=== PATIENT | male | born 1950 | race Caucasian/White ===

== ENCOUNTER 2016-08-15 14:07 | Observation (INO) | payer OTHER ==
[2016-08-15] VITALS (7 sets, daily range): BP systolic 126–147; BP diastolic 63–74; PULSE 44–74; RESP 16–18; TEMP 97.8–98.1; O2SAT 97–100
[~2016-08-15] VITALS: Ht 172.7 cm; Wt 82.0 kg
[2016-08-15] MEDS ORDERED: SODIUM CHLORIDE 0.9% FLUSH 10 ML FLUSH IVF PRN (14:15)
[2016-08-15] MEDS ORDERED: HYDR25TA5 PO (14:15)
--- NOTE | 2016-08-15 14:17 | PD ---
HPI Chief Complaint: chest pain Time Seen by Provider: 14:17 Travel History International Travel<30 days: No Contact w/Intl Traveler<30days: No Traveled to known affect area: No History of Present Illness HPI 66-year-old male with history of hypertension presents to the emergency department from the [place] for evaluation of left-sided chest pain. Patient states it has been intermittently occurring over the last couple of months. It has been on the left side, sharp, stabbing, intermittent but does not radiate anywhere. Patient reports associated shortness of breath with it at times. No nausea or vomiting. No hemoptysis. No cough or chest congestion. Patient has no history of [place] or PE. Reports stress test at the [place] within the last 2 months he states "everything was fine." Patient denies any episodes of diaphoresis or lightheadedness associated with this. He cannot recall any alleviating or exacerbating factors. No other symptoms to report. PFSH Past Medical History Hypertension: Yes Social History Alcohol Use: No Tobacco Use: No Substance Use: No Allergies-Medications (Allergen,Severity, Reaction): Coded Allergies: No Known Allergies (Unverified , 08/15/16) Reported Meds & Prescriptions Reported Meds & Active Scripts Active Reported Hydrochlorothiazide 25 Mg Tab 25 Mg PO DAILY Review of Systems Except as stated in HPI: all other systems reviewed are Neg Physical Exam Narrative GENERAL: Well-nourished male patient, ambulatory and in no acute distress SKIN: Warm and dry. HEAD: Atraumatic. Normocephalic. EYES: Pupils equal and round. No scleral icterus. No injection or drainage. ENT: No nasal bleeding or discharge. Mucous membranes pink and moist. NECK: Trachea midline. No JVD. CARDIOVASCULAR: Bradycardic rate and rhythm. No murmur appreciated. RESPIRATORY: No accessory muscle use. Clear to auscultation. Breath sounds equal bilaterally. GASTROINTESTINAL: Abdomen soft, non-tender, nondistended. Hepatic and splenic margins not palpable. MUSCULOSKELETAL: No obvious deformities. No clubbing. No cyanosis. No edema. NEUROLOGICAL: Awake and alert. No obvious cranial nerve deficits. Motor grossly within normal limits. Normal speech. PSYCHIATRIC: Appropriate mood and affect; insight and judgment normal. Data Data Last Documented VS Vital Signs Date Time Temp Pulse Resp B/P Pulse Ox O2 Delivery O2 Flow Rate FiO2 08/15/16 16:25 46 16 147/73 100 Room Air 08/15/16 14:16 98.1 Orders Electrocardiogram (08/15/16 ) Ckmb (Isoenzyme) Profile (08/15/16 14:15) Complete Blood Count With Diff (08/15/16 14:15) Comprehensive Metabolic Panel (08/15/16 14:15) Magnesium (Mg) (08/15/16 14:15) Prothrombin Time / Inr (Pt) (08/15/16 14:15) Act Partial Throm Time (Ptt) (08/15/16 14:15) Troponin I (08/15/16 14:15) Lipase (08/15/16 14:15) Chest, Single Ap (08/15/16 14:15) Ecg Monitoring (08/15/16 14:15) Bilateral Bp Monitoring (08/15/16 14:15) Iv Access Insert/Monitor (08/15/16 14:15) Oximetry (08/15/16 14:15) Oxygen Administration (08/15/16 14:15) Sodium Chloride 0.9% Flush (Ns Flush) (08/15/16 14:15) Ct Pulmonary Angiogram (08/15/16 14:15) CKMB (08/15/16 14:25) CKMB% (08/15/16 14:25) Iohexol 350 Inj (Omnipaque 350 Inj) (08/15/16 16:20) Admit Order (Ed Use Only) (08/15/16 16:39) Aspirin (Aspirin) (08/15/16 16:45) Labs Laboratory Tests Test 08/15/16 14:25 White Blood Count 6.4 TH/MM3 Red Blood Count 5.15 MIL/MM3 Hemoglobin 16.1 GM/DL Hematocrit 46.2 % Mean Corpuscular Volume 89.6 FL Mean Corpuscular Hemoglobin 31.2 PG Mean Corpuscular Hemoglobin 34.8 % Concent Red Cell Distribution Width 13.4 % Platelet Count 133 TH/MM3 Mean Platelet Volume 10.0 FL Neutrophils (%) (Auto) 57.1 % Lymphocytes (%) (Auto) 25.0 % Monocytes (%) (Auto) 13.4 % Eosinophils (%) (Auto) 3.3 % Basophils (%) (Auto) 1.2 % Neutrophils # (Auto) 3.7 TH/MM3 Lymphocytes # (Auto) 1.6 TH/MM3 Monocytes # (Auto) 0.9 TH/MM3 Eosinophils # (Auto) 0.2 TH/MM3 Basophils # (Auto) 0.1 TH/MM3 CBC Comment DIFF FINAL Differential Comment Prothrombin Time 11.4 SEC Prothromb Time International 1.0 RATIO Ratio Activated Partial 26.8 SEC Thromboplast Time Sodium Level 139 MEQ/L Potassium Level 3.7 MEQ/L Chloride Level 103 MEQ/L Carbon Dioxide Level 33.1 MEQ/L Anion Gap 3 MEQ/L Blood Urea Nitrogen 12 MG/DL Creatinine 0.99 MG/DL Estimat Glomerular Filtration 76 ML/MIN Rate Random Glucose 93 MG/DL Calcium Level 8.9 MG/DL Magnesium Level 2.1 MG/DL Total Bilirubin 0.7 MG/DL Aspartate Amino Transf 24 U/L (AST/SGOT) Alanine Aminotransferase 32 U/L (ALT/SGPT) Alkaline Phosphatase 59 U/L Total Creatine Kinase 226 U/L Creatine Kinase MB 2.2 NG/ML Troponin I 0.02 NG/ML Total Protein 7.3 GM/DL Albumin 3.7 GM/DL Lipase 128 U/L [facility] Medical Decision Making Medical Screen Exam Complete: Yes Emergency Medical Condition: Yes Medical Record Reviewed: Yes Differential Diagnosis ACS versus chest wall pain versus pleuritic pain versus musculoskeletal pain Narrative Course 66-year-old male presents to the emergency department for evaluation of left- sided chest pain. Patient appears without distress. Exam is benign. Patient is noted to have a bradycardic rhythm here in the emergency department. CBC and CMP are without acute concern. Troponin is 0.02. Chest x-ray is normal. CT pulmonary angiogram is negative for PE. I discussed the patient my attending physician Dr. Dong who agrees the patient benefit from stenting admission for further evaluation of this chest pain. Plan is discussed with patient. He is in agreement with the splenic care. Diagnosis Primary Impression: Chest pain Qualified Code: R07.9 - Chest pain, unspecified type Admitting Information Admitting Physician Requests: Observation Condition: Stable KraigGenny GOLDBERG Aug 15, 2016 14:17
--- NOTE | 2016-08-15 14:43 | RADRPT ---
EXAM DATE/TIME: 08/15/2016 14:27 [facility] COMPARISON: No previous studies available for comparison. INDICATIONS : Left sided chest pain with shortness of breath for 2 days. MEDICAL HISTORY : None. SURGICAL HISTORY : None. ENCOUNTER: Initial ACUITY: 2 days PAIN SCORE: 5/10 LOCATION: Left chest FINDINGS: 2 frontal views of the chest demonstrate the lungs to be symmetrically aerated without evidence of ma ss, infiltrate or effusion. The cardiomediastinal contours are unremarkable. Osseous structures are intact. CONCLUSION: Normal examination. Colin Chang Jr., MD on August 15, 2016 at 14:41 Board Certified Radiologist. This report was verified electronically.
[2016-08-15 14:51] LABS: AUTOMATED NEUTROPHIL # 3.7 TH/MM3 (1.8-7.7); BASOPHIL # 0.1 TH/MM3 (0-0.2); BASOPHIL % 1.2 % (0.0-2.0); EOSINOPHIL # 0.2 TH/MM3 (0-0.4); EOSINOPHIL % 3.3 % (0.0-4.0); HEMATOCRIT 46.2 % (39.0-51.0); HEMO FLAGS DIFF FINAL; LYMPHOCYTE # 1.6 TH/MM3 (1.0-4.8); MEAN CELL VOLUME 89.6 FL (80.0-100.0); MEAN CORPUSCULAR HEMOGLOBIN 31.2 PG (27.0-34.0); MEAN CORPUSCULAR HGB CONC 34.8 % (32.0-36.0); MONO % 13.4 % (0.0-8.0); NEUT % 57.1 % (16.0-70.0); PLATELET COUNT 133 TH/MM3 (150-450); RED BLOOD COUNT 5.15 MIL/MM3 (4.50-5.90); RED CELL DISTRIBUTION WIDTH 13.4 % (11.6-17.2); WHITE BLOOD COUNT 6.4 TH/MM3 (4.0-11.0)
[2016-08-15 14:59] LABS: APTT (PATIENT) 26.8 SEC (24.3-30.1); PROTHROMBIN TIME - PATIENT 11.4 SEC (9.8-11.6)
[2016-08-15 15:15] LABS: ALKALINE PHOSPHATASE 59 U/L (45-117); ALT (GPT) 32 U/L (12-78); ANION GAP 3 MEQ/L (5-15); AST (GOT) 24 U/L (15-37); BICARBONATE 33.1 MEQ/L (21.0-32.0); BLOOD UREA NITROGEN 12 MG/DL (7-18); CHLORIDE 103 MEQ/L (98-107); CREATINE KINASE 226 U/L (39-308); GLOMERULAR FILTRATION RATE 76 ML/MIN (>89); MAGNESIUM 2.1 MG/DL (1.5-2.5); SODIUM (NA) 139 MEQ/L (136-145); TOTAL BILIRUBIN ADULT 0.7 MG/DL (0.2-1.0)
[2016-08-15 15:16] LABS: POTASSIUM 3.7 MEQ/L (3.5-5.1)
[2016-08-15 15:30] LABS: CKMB 2.2 NG/ML (0.5-3.6)
[2016-08-15] MEDS ORDERED: IOHEXOL 350 MG/ML 10 ML VIAL (for RAD DIAG) IV ONE (16:20)
--- NOTE | 2016-08-15 16:29 | RADRPT ---
EXAM DATE/TIME: 08/15/2016 16:08 [facility] COMPARISON: No previous studies available for comparison. INDICATIONS : Chest pain and shortness of breath; evaluate for pulmonary embolism. IV CONTRAST: 55 cc Omnipaque 350 (iohexol) IV RADIATION DOSE: 13.15 CTDIvol (mGy) MEDICAL HISTORY : Cardiovascular disease. Hypertension. SURGICAL HISTORY : None. ENCOUNTER: Initial ACUITY: 2 days PAIN SCALE: 6/10 LOCATION: Chest TECHNIQUE: Volumetric scanning of the chest was performed using a pulmonary embolism protocol MIP images were re constructed. Using automated exposure control and adjustment of the mA and/or kV according to patien t size, radiation dose was kept as low as reasonably achievable to obtain optimal diagnostic quality images. FINDINGS: The lungs are clear. There is no axillary adenopathy. There is no radiographically significant mediastinal adenopathy. There is no central pulmonary emboli. Portion of the liver and spleen identified are free of focal defects. CONCLUSION: Negative for central pulmonary emboli. Khadar Norton MD FACR on August 15, 2016 at 16:23 Board Certified Radiologist. This report was verified electronically.
[2016-08-15] MEDS ORDERED: ASPIRIN 325 MG TAB PO ONE (16:45)
[2016-08-15] MEDS ORDERED: ONDANSETRON HCL 4 MG/2 ML VIAL IV PRN (17:30)
[2016-08-15] MEDS ORDERED: ACETAMINOPHEN 500 MG CPLT PO PRN (17:30)
[2016-08-15] MEDS ORDERED: NITROGLYCERIN 0.4 MG SL 25 TABS/BTL SL PRN (17:30)
[2016-08-15 20:01] LABS: CREATINE KINASE 194 U/L (39-308)
[2016-08-15 20:13] LABS: CKMB 2.5 NG/ML (0.5-3.6)
[2016-08-15 21:13] LABS: CREATINE KINASE 184 U/L (39-308)
[2016-08-16] VITALS: BP 128/74; PULSE 68; RESP 18; TEMP 98.2; O2SAT 98
[2016-08-16 01:21] VITALS: PULSE 41
[2016-08-16 05:06] VITALS: BP 126/58; PULSE 87; RESP 18; TEMP 97.8; O2SAT 97
[2016-08-16 08:33] VITALS: PULSE 82
[2016-08-16] MEDS ORDERED: PANTOPRAZOLE SOD 40 MG DELAYED RELEASE TAB PO SCH (09:00)
[2016-08-16] MEDS ORDERED: HYDROCHLOROTHIAZIDE 25 MG TAB PO SCH (09:00)
[2016-08-16] MEDS ORDERED: SODIUM CHLORIDE 0.9% FLUSH 10 ML FLUSH IV FLUSH SCH (09:00)
[2016-08-16] MEDS ORDERED: ASPIRIN 325 MG TAB PO SCH (09:00)
--- NOTE | 2016-08-16 11:41 | RADRPT ---
EXAM DATE/TIME: 08/16/2016 08:46 [facility] COMPARISON: No previous studies available for comparison. INDICATIONS : Left chest pain with dyspnea for 2 months. Angina DOSE: 26.7 mCi Tc99m Myoview at stress 8.8 mCi Tc99m Myoview at rest REST HEART RATE: 64 BPM TARGET HEART RATE: 131 BPM MAX HEART RATE: 133 BPM REST BLOOD PRESSURE: 122/66 mmHg MAX BLOOD PRESSURE: 33122 mmHg EJECTION FRACTION: 62% MEDICAL HISTORY : Hypertension. SURGICAL HISTORY : None. ENCOUNTER: Initial ACUITY: 2 months PAIN SCALE: 7/10 LOCATION: Left chest TECHNIQUE: The patient underwent upright treadmill exercise in the chest pain center. Continuous ECG tracing wa s monitored during stress. Gated SPECT imaging was performed after stress, and conventional SPECT im aging was performed at rest. The examination was performed on a SPECT/CT scanner, both attenuation-c orrected and non-corrected datasets were reviewed. FINDINGS: DISTRIBUTION: The maximum perfused segment at stress is in the lateral wall. PERFUSION STUDY: The pattern of perfusion at stress is within normal limits. GATED STUDY: There is intact wall motion and thickening without hypokinetic or dyskinetic segments. CONCLUSION: 1. Unremarkable myocardial perfusion scan. RISK CATEGORY: Low (<1% Annual Mortality Rate) Kiran Zepeda MD on August 16, 2016 at 11:38 Board Certified Radiologist. This report was verified electronically.
[2016-08-16] MEDS ORDERED: PANT40TA3 PO (12:08)
--- NOTE | 2016-08-16 12:09 | HHI.DCPOC ---
Discharge Care Plan Diagnosis: (1) Atypical chest pain (2) Musculoskeletal chest pain (3) GERD (gastroesophageal reflux disease) Goals to Promote Your Health * To prevent worsening of your condition and complications * To maintain your health at the optimal level Directions to Meet Your Goals Take your medications as prescribed Follow your dietary instruction Follow activity as directed Keep your appointments as scheduled Take your immunizations and boosters as scheduled If your symptoms worsen call your PCP, if no PCP go to Urgent Care Center or Emergency Room Smoking is Dangerous to Your Health. Avoid second hand smoke Call the 24-hour hour crisis hotline for domestic abuse at [place] Cruz Aug 16, 2016 12:08
[2016-08-16 12:29] VITALS: BP 141/78; PULSE 55; RESP 19; TEMP 97.6; O2SAT 94
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
--- NOTE | 2016-08-16 17:36 | TR ---
Date Performed: 08/16/2016 Time Performed: 09:40:13 DOCTOR: Awa Weeks DRUG LIST: CLINICAL HISTORY: CHEST PAIN REASON FOR TEST: REASON FOR ENDING: OBSERVATION: CONCLUSION: Candido protocol completed. Stopped sec to exceeding target heart rate and leg fatigue . Maximum ZB=341 Target HR Achieved=86.0% Maximum ST=126/66 Total Exercise Time=8:30. No reprod chest discomfort. Inferior ST changes that are borderline. Good exercie to[place]rance. Normal bp response. Rec overy quick and unremarkable. Nuclear images pending. COMMENTS:
--- NOTE | 2016-08-16 21:37 | EKG ---
Date Performed: 08/15/2016 Time Performed: 23:09:06 PTAGE: 66 years EKG: SINUS BRADYCARDIA WITH FIRST DEGREE AV BLOCK NONSPECIFIC ST & T-WAVE ABNORMALITY ABNORMAL E CG abnormal R progression that is new PREVIOUS TRACING : 08/15/2016 18.47 DOCTOR: Awa Weeks Interpretating Date/Time 08/16/2016 21:36:37
--- NOTE | 2016-08-16 21:39 | EKG ---
Date Performed: 08/15/2016 Time Performed: 18:47:32 PTAGE: 66 years EKG: SINUS BRADYCARDIA WITH FIRST DEGREE AV BLOCK INFERIOR MYOCARDIAL INFARCTION ANTEROSEPTAL MY OCARDIAL INFARCTION ABNORMAL ECG Since PREVIOUS TRACING , no significant change noted PREVIOUS TRACIN08/15/2016 14.26 DOCTOR: Awa Weeks Interpretating Date/Time 08/16/2016 21:38:31
--- NOTE | 2016-08-17 14:33 | EKG ---
Date Performed: 08/15/2016 Time Performed: 14:26:09 PTAGE: 66 years EKG: SINUS BRADYCARDIA WITH FIRST DEGREE AV BLOCK MINIMAL VOLTAGE CRITERIA FOR LVH, CONSIDER NOR MAL VARIANT ABNORMAL ECG NO PREVIOUS TRACING DOCTOR: Awa Weeks Interpretating Date/Time 08/17/2016 14:31:16
== END 2016-08-16 13:28 | disposition home or self-care (01) ==
LOC: NEPE 14:07 → NEDA 16:43 → NEPGCP 21:11
PROVIDERS: ADMIT Internal Medicine Cardiovascular Disease; ATTEND Internal Medicine Cardiovascular Disease
DX: R07.9 Chest pain, unspecified (principal); I10 Essential (primary) hypertension; R06.02 Shortness of breath; R00.1 Bradycardia, unspecified; Z87.11 Personal history of peptic ulcer disease; I44.0 Atrioventricular block, first degree; M79.1 Myalgia; K21.9 Gastro-esophageal reflux disease without esophagitis
CPT/HCPCS: 71010; 71275; 78452; 80053; 82550; 82552; 83690; 83735; 84484; 85025; 85610; 85730; 93005; 93017; 99285; A9502; G0378; Q9967